=== PATIENT | female | born 1950 | race African-American/Black ===

== ENCOUNTER 2020-05-01 12:25 | Inpatient (IN) ==
[2020-05-01] MEDS ORDERED: SODIUM CHLORIDE 0.9% 1,000 ML IV STA (12:53)
[2020-05-01 13:26] LABS: Basophils # 0.1 10*3/uL (0.0-0.2); Basophils % 0.4 % (0.0-0.8); Eosinophils % 0.1 % (0.00-10.9); Hemoglobin 9.4 GM/DL (12.0-16.0); Immature Granulocytes % 3.5 %; Immature Granulocytes Absolute 0.66 #; Lymphocytes % 5.6 % (21.3-54.2); Mean Corpuscular HGB Conc 31.3 GM/DL (32-36); Mean Platelet Volume 9.7 FL (9.6-12.0); Monocytes % 7.7 % (1.7-12.7); Neutrophils % 82.7 % (38.7-73.9); Platelet Count 483 T/CUMM (130-400); Red Blood Count 3.26 MC/CUMM (3.8-5.5); Red Cell Distribution Width 17.3 % (9.3-17.3); White Blood Count 18.7 T/CUMM (4-12)
[2020-05-01 13:37] LABS: INR 1.1; PT Patient Result 11.4 SECS (9.8-11.9); Partial Thromboplastin Time 28.8 SECS (23.9-33.8)
[2020-05-01] MEDS ORDERED: methylPREDNISolone SOD SUC 125 MG/2 ML VIAL IV STA (13:47)
[2020-05-01 13:59] LABS: Alanine Aminotransferase 10 U/L (13-56); Albumin 2.7 G/DL (3.4-5.0); Alkaline Phosphatase 71 U/L (45-117); Aspartate Amino Transferase 20 U/L (0-37); Blood Urea Nitrogen 21 MG/DL (7-18); Calcium 10.1 MG/DL (8.5-10.1); Estimated Glom Filtration Rate 51 ML/MIN; Glucose 109 MG/DL (74-106); Osmolality,Calculated 271.2 MOS/KG (273-304); Total Protein 7.9 G/DL (6.4-8.3)
[2020-05-01 14:26] LABS: Bilirubin,Urine Negative (Negative); Blood, Urine Negative (Negative); Glucose,Urine (UA) Negative (Negative); Hyaline Casts,Urine 8 /LPF (0-3); Ketones,Urine Negative (Negative); Mucus,Urine Occasional /LPF (Occasional); Nitrite,Urine Negative (Negative); Protein,Urine Negative; Squamous Epithelial Cell,Urine Occasional /HPF (0-10); Urine Appearance Slightly Hazy (Clear); Urine Color Yellow (Yellow); Urine Specific Gravity 1.023 (1.001-1.035); Urine Urobilinogen < 2.0 EU/DL (0.2-1.0); WBC,Urine 1 /HPF (0-6)
[2020-05-01] MEDS ORDERED: DEXTROSE 50% 25 GM/50 ML VIAL IV PRN (15:30)
[2020-05-01] MEDS ORDERED: GLUCAGON 1 MG VIAL IM PRN (15:30)
[2020-05-01] MEDS ORDERED: MAGNESIUM SULF RIDER 4 GM in PREMIX 1 EACH IV PRN (15:39)
[2020-05-01] MEDS ORDERED: MAGNESIUM SULF RIDER 2 GM in PREMIX 1 EACH IV PRN (15:39)
[2020-05-01] MEDS: SODIUM CHLORIDE 0.9% 1,000 ML IV SCH (16:25)
[2020-05-01] MEDS: ONDANSETRON 4 MG/2 ML VIAL IV PRN (16:28)
[2020-05-01] MEDS: HYDROmorphone 2 MG/1 ML VIAL IV PRN ×2 (16:32→20:45)
[2020-05-01] MEDS: PIPERACILLIN/TAZOBACTAM 3,375 MG in SODIUM CHLORIDE 0.9% 100 ML IV SCH (16:33)
[2020-05-01 16:50] LABS: Lymphocytes 10 % (20-55); Segmented Neutrophils 86 % (50-85); Total Cells Counted 100
[2020-05-01] MEDS ORDERED: chlordiazePOXIDE 10 MG CAPSULE PO PRN (17:28)
[2020-05-01] MEDS: ENOXAPARIN 40 MG/0.4 ML SYRINGE SUBCUT SCH (20:46)
[2020-05-01] MEDS: VANCOMYCIN INJ 1,500 MG in SODIUM CHLORIDE 0.9% 500 ML IV SCH (20:57)
[2020-05-02] MEDS: PIPERACILLIN/TAZOBACTAM 3,375 MG in SODIUM CHLORIDE 0.9% 100 ML IV SCH ×4 (00:59→23:54)
[2020-05-02] MEDS: HYDROmorphone 2 MG/1 ML VIAL IV PRN ×6 (00:59→21:09)
[2020-05-02] MEDS: SODIUM CHLORIDE 0.9% 1,000 ML IV SCH ×3 (01:32→17:57)
[2020-05-02 06:11] LABS: Basophils % 0.1 % (0.0-0.8); Hematocrit 26.7 VOL% (35.7-47.0); Hemoglobin 8.2 GM/DL (12.0-16.0); Immature Granulocytes % 2.2 %; Immature Granulocytes Absolute 0.38 #; Lymphocytes # 1.3 10*3/uL (1.4-4.0); Lymphocytes % 7.2 % (21.3-54.2); Mean Corpuscular HGB Conc 30.7 GM/DL (32-36); Mean Corpuscular Volume 92.7 FL (87-102); Mean Platelet Volume 9.7 FL (9.6-12.0); Monocytes % 1.3 % (1.7-12.7); Neutrophils % 89.2 % (38.7-73.9); Platelet Count 472 T/CUMM (130-400); Red Blood Count 2.88 MC/CUMM (3.8-5.5); Red Cell Distribution Width 17.3 % (9.3-17.3); White Blood Count 17.5 T/CUMM (4-12)
[2020-05-02 06:26] LABS: Albumin 2.3 G/DL (3.4-5.0); Bilirubin,Total 0.7 MG/DL (0.2-1.0); Calcium 9.2 MG/DL (8.5-10.1); Osmolality,Calculated 281.5 MOS/KG (273-304)
[2020-05-02] MEDS: PANTOPRAZOLE 40 MG TABLET PO SCH (10:43)
[2020-05-02] MEDS ORDERED: LIDOCAINE 1% 20 ML VIAL MISC INJ ONE (14:20)
[2020-05-02] MEDS: methylPREDNISolone SOD SUC 40 MG/1 ML VIAL IV SCH (14:40)
[2020-05-02] MEDS: VANCOMYCIN INJ 1,500 MG in SODIUM CHLORIDE 0.9% 500 ML IV SCH (15:11)
[2020-05-02 17:27] LABS: Cholesterol Crystals None Seen /LPF
[2020-05-02 17:32] LABS: Lymphocytes,Synovial Fluid 10 %; Neutrophils,Synovial Fluid 86 %
[2020-05-02] MEDS: ENOXAPARIN 40 MG/0.4 ML SYRINGE SUBCUT SCH (21:12)
[2020-05-03] MEDS: HYDROmorphone 2 MG/1 ML VIAL IV PRN ×5 (01:17→21:58)
[2020-05-03 05:49] LABS: Basophils % 0.1 % (0.0-0.8); Hematocrit 25.8 VOL% (35.7-47.0); Immature Granulocytes % 1.9 %; Immature Granulocytes Absolute 0.36 #; Lymphocytes # 0.9 10*3/uL (1.4-4.0); Lymphocytes % 4.7 % (21.3-54.2); Mean Corpuscular Volume 93.1 FL (87-102); Mean Platelet Volume 9.4 FL (9.6-12.0); Neutrophils % 89.3 % (38.7-73.9); Platelet Count 479 T/CUMM (130-400); Red Blood Count 2.77 MC/CUMM (3.8-5.5); Red Cell Distribution Width 17.2 % (9.3-17.3); White Blood Count 18.9 T/CUMM (4-12)
[2020-05-03 06:09] LABS: Calcium 8.5 MG/DL (8.5-10.1); Osmolality,Calculated 288.4 MOS/KG (273-304)
[2020-05-03 06:12] LABS: Hypochromasia 1+; Lymphocytes 1 % (20-55); Microcytosis 1+; Ovalocytes 1+; Segmented Neutrophils 98 % (50-85); Total Cells Counted 100
[2020-05-03 06:13] LABS: Platelet Estimate Increased
[2020-05-03] MEDS: methylPREDNISolone SOD SUC 40 MG/1 ML VIAL IV SCH (08:37)
[2020-05-03] MEDS: PIPERACILLIN/TAZOBACTAM 3,375 MG in SODIUM CHLORIDE 0.9% 100 ML IV SCH ×2 (08:37→16:18)
[2020-05-03] MEDS: PANTOPRAZOLE 40 MG TABLET PO SCH (08:37)
[2020-05-03] MEDS: SODIUM CHLORIDE 0.9% 1,000 ML IV SCH ×2 (15:22→23:59)
[2020-05-03] MEDS: ENOXAPARIN 40 MG/0.4 ML SYRINGE SUBCUT SCH (22:00)
[2020-05-04] MEDS: PIPERACILLIN/TAZOBACTAM 3,375 MG in SODIUM CHLORIDE 0.9% 100 ML IV SCH ×4 (00:02→23:55)
[2020-05-04] MEDS: HYDROmorphone 2 MG/1 ML VIAL IV PRN ×5 (02:03→23:54)
[2020-05-04 06:26] LABS: Basophils % 0.1 % (0.0-0.8); Hematocrit 25.5 VOL% (35.7-47.0); Hemoglobin 7.8 GM/DL (12.0-16.0); Immature Granulocytes % 1.3 %; Lymphocytes # 1.1 10*3/uL (1.4-4.0); Lymphocytes % 7.3 % (21.3-54.2); Mean Corpuscular HGB Conc 30.6 GM/DL (32-36); Mean Corpuscular Volume 94.8 FL (87-102); Mean Platelet Volume 9.8 FL (9.6-12.0); Monocytes % 6.3 % (1.7-12.7); Platelet Count 472 T/CUMM (130-400); Red Blood Count 2.69 MC/CUMM (3.8-5.5); Red Cell Distribution Width 17.6 % (9.3-17.3); White Blood Count 15.6 T/CUMM (4-12)
[2020-05-04 06:48] LABS: Calcium 8.9 MG/DL (8.5-10.1); Osmolality,Calculated 290.1 MOS/KG (273-304)
[2020-05-04] MEDS ORDERED: BISACODYL 5 MG TABLET PO ONE (09:23)
[2020-05-04] MEDS: PANTOPRAZOLE 40 MG TABLET PO SCH (09:51)
[2020-05-04] MEDS: methylPREDNISolone SOD SUC 40 MG/1 ML VIAL IV SCH (09:52)
[2020-05-04] MEDS: SODIUM CHLORIDE 0.9% 1,000 ML IV SCH (09:53)
[2020-05-04] MEDS ORDERED: POLYETHYLENE GLYCOL POWDER 17 GM PACK PO SCH (10:00)
[2020-05-04] MEDS: COLCHICINE 0.6 MG CAPSULE PO SCH (10:19)
[2020-05-04] MEDS: allopurinoL 100 MG TABLET PO SCH (10:19)
[2020-05-04] MEDS: ENOXAPARIN 40 MG/0.4 ML SYRINGE SUBCUT SCH (20:00)
[2020-05-05] MEDS: SODIUM CHLORIDE 0.9% 1,000 ML IV SCH ×3 (00:04→20:15)
[2020-05-05 06:48] LABS: Calcium 8.9 MG/DL (8.5-10.1); Osmolality,Calculated 295.7 MOS/KG (273-304)
[2020-05-05 06:49] LABS: Basophils % 0.1 % (0.0-0.8); Eosinophils % 0.1 % (0.00-10.9); Hematocrit 26.3 VOL% (35.7-47.0); Hemoglobin 8.1 GM/DL (12.0-16.0); Immature Granulocytes Absolute 0.28 #; Lymphocytes # 1.7 10*3/uL (1.4-4.0); Lymphocytes % 11.8 % (21.3-54.2); Mean Corpuscular HGB Conc 30.8 GM/DL (32-36); Mean Corpuscular Volume 94.6 FL (87-102); Mean Platelet Volume 9.7 FL (9.6-12.0); Monocytes % 9.1 % (1.7-12.7); Neutrophils % 76.9 % (38.7-73.9); Platelet Count 428 T/CUMM (130-400); Red Blood Count 2.78 MC/CUMM (3.8-5.5); Red Cell Distribution Width 17.6 % (9.3-17.3)
[2020-05-05] MEDS: PIPERACILLIN/TAZOBACTAM 3,375 MG in SODIUM CHLORIDE 0.9% 100 ML IV SCH (09:14)
[2020-05-05] MEDS: allopurinoL 100 MG TABLET PO SCH (09:15)
[2020-05-05] MEDS: methylPREDNISolone SOD SUC 40 MG/1 ML VIAL IV SCH (09:15)
[2020-05-05] MEDS: HYDROmorphone 2 MG/1 ML VIAL IV PRN ×3 (09:16→20:07)
[2020-05-05] MEDS: PANTOPRAZOLE 40 MG TABLET PO SCH (09:16)
[2020-05-05] MEDS: ENOXAPARIN 40 MG/0.4 ML SYRINGE SUBCUT SCH (20:07)
[2020-05-06] MEDS: HYDROmorphone 2 MG/1 ML VIAL IV PRN ×4 (00:49→20:17)
[2020-05-06 05:57] LABS: Calcium 9.2 MG/DL (8.5-10.1)
[2020-05-06 05:58] LABS: Basophils % 0.1 % (0.0-0.8); Eosinophils % 0.3 % (0.00-10.9); Hematocrit 27.6 VOL% (35.7-47.0); Hemoglobin 8.3 GM/DL (12.0-16.0); Immature Granulocytes % 1.3 %; Immature Granulocytes Absolute 0.17 #; Lymphocytes # 2.3 10*3/uL (1.4-4.0); Lymphocytes % 18.4 % (21.3-54.2); Mean Corpuscular HGB Conc 30.1 GM/DL (32-36); Mean Corpuscular Volume 94.8 FL (87-102); Mean Platelet Volume 10.5 FL (9.6-12.0); Monocytes % 9.5 % (1.7-12.7); NRBC # 0.02 10*3/uL; Neutrophils % 70.4 % (38.7-73.9); Platelet Count 454 T/CUMM (130-400); Red Blood Count 2.91 MC/CUMM (3.8-5.5); Red Cell Distribution Width 17.7 % (9.3-17.3); White Blood Count 12.6 T/CUMM (4-12)
[2020-05-06] MEDS: PANTOPRAZOLE 40 MG TABLET PO SCH (08:32)
[2020-05-06] MEDS: COLCHICINE 0.6 MG CAPSULE PO SCH (08:32)
[2020-05-06] MEDS: allopurinoL 100 MG TABLET PO SCH (08:33)
[2020-05-06] MEDS: methylPREDNISolone SOD SUC 40 MG/1 ML VIAL IV SCH (08:33)
[2020-05-06] MEDS: amLODIPine 5 MG TABLET PO SCH (11:01)
[2020-05-06] MEDS: ENOXAPARIN 40 MG/0.4 ML SYRINGE SUBCUT SCH (20:16)
[2020-05-07] MEDS: HYDROmorphone 2 MG/1 ML VIAL IV PRN ×4 (00:08→17:27)
[2020-05-07 06:22] LABS: Basophils % 0.2 % (0.0-0.8); Eosinophils # 0.1 10*3/uL (0.0-0.87); Eosinophils % 0.6 % (0.00-10.9); Hematocrit 28.9 VOL% (35.7-47.0); Hemoglobin 8.9 GM/DL (12.0-16.0); Immature Granulocytes % 1.5 %; Immature Granulocytes Absolute 0.19 #; Lymphocytes % 15.8 % (21.3-54.2); Mean Corpuscular HGB Conc 30.8 GM/DL (32-36); Mean Corpuscular Volume 93.2 FL (87-102); Mean Platelet Volume 9.7 FL (9.6-12.0); Monocytes % 9.5 % (1.7-12.7); Neutrophils % 72.4 % (38.7-73.9); Platelet Count 431 T/CUMM (130-400); Red Cell Distribution Width 18.5 % (9.3-17.3); White Blood Count 12.6 T/CUMM (4-12)
[2020-05-07 06:45] LABS: Calcium 9.3 MG/DL (8.5-10.1); Osmolality,Calculated 290.7 MOS/KG (273-304)
[2020-05-07] MEDS: predniSONE 20 MG TABLET PO SCH (10:17)
[2020-05-07] MEDS: COLCHICINE 0.6 MG CAPSULE PO SCH (10:17)
[2020-05-07] MEDS: PANTOPRAZOLE 40 MG TABLET PO SCH (10:17)
[2020-05-07] MEDS: allopurinoL 100 MG TABLET PO SCH (10:18)
[2020-05-07] MEDS: amLODIPine 5 MG TABLET PO SCH (10:18)
[2020-05-07] MEDS: ONDANSETRON 4 MG/2 ML VIAL IV PRN ×2 (13:20→17:26)
[2020-05-07] MEDS ORDERED: LOPERAMIDE 2 MG CAPSULE PO PRN (16:44)
[2020-05-07] MEDS ORDERED: allopurinoL 100 MG TABLET PO SCH (16:44)
[2020-05-07] MEDS: POTASSIUM CHLORIDE 20 MEQ TABLET PO SCH (17:28)
[2020-05-07] MEDS: ENOXAPARIN 40 MG/0.4 ML SYRINGE SUBCUT SCH (20:33)
[2020-05-08] MEDS: ONDANSETRON 4 MG/2 ML VIAL IV PRN ×3 (07:27→16:08)
[2020-05-08] MEDS: HYDROmorphone 2 MG/1 ML VIAL IV PRN ×3 (07:28→16:08)
[2020-05-08] MEDS ORDERED: CHOLECALCIFEROL 1,000 UNIT TABLET PO SCH (09:00)
[2020-05-08] MEDS: PANTOPRAZOLE 40 MG TABLET PO SCH (09:58)
[2020-05-08] MEDS: amLODIPine 5 MG TABLET PO SCH (09:58)
[2020-05-08] MEDS: POTASSIUM CHLORIDE 20 MEQ TABLET PO SCH (09:58)
[2020-05-08] MEDS: predniSONE 20 MG TABLET PO SCH (09:58)
[2020-05-08] MEDS ORDERED: POTASSIUM CHLORIDE 20 MEQ TABLET PO SCH (15:23)
[2020-05-08 16:09] VITALS: BP 114/54
== END 2020-05-08 18:36 | disposition swing bed (61) | DRG 546 ==
LOC: EDUNIT# → EDBD → N.ED 12:25 → SUATTDRO 17:23 → N.EDINP 17:23 → N.3E 18:25
PROVIDERS: ADMIT Family Medicine; ATTEND Hospitalist

== ENCOUNTER 2021-07-05 01:26 | Inpatient (IN) ==
[2021-07-05] MEDS ORDERED: NOREPINEPHRINE 4 MG/4 ML VIAL IV ONE ×3 (01:30→02:58)
[2021-07-05] MEDS ORDERED: MAGNESIUM SULF RIDER 2 GM/50 ML PREMIX IV ONE (01:42)
[2021-07-05 02:12] LABS: ABG Base Excess -23.2 MMOL/L (-2.5-2.5); ABG HCO3 8.7 MMOL/L (20-26); ABG Oxygen Saturation 88.4 % (95-100); ABG PCO2 48.8 MM HG (35-48); ABG PO2 81.6 MM HG (80-95); ABG TCO2 10.2 MMOL/L (23-27)
[2021-07-05] MEDS ORDERED: SODIUM BICARBONATE 50 MEQ/50 ML SYRINGE IV ONE ×3 (02:16→04:53)
[2021-07-05] MEDS ORDERED: ENOXAPARIN 100 MG/ML SYRINGE SUBCUT STA (02:22)
[2021-07-05] MEDS ORDERED: SODIUM BICARBONATE 10 MEQ/10 ML SYRINGE IV ONE (03:08)
[2021-07-05] MEDS ORDERED: PHENYLEPHRINE DRIP 40 MG/250 ML PREMIX IV ONE (03:11)
[2021-07-05] MEDS: NOREPINEPHRINE 16 MG in SODIUM CHLORIDE 0.9% 234 ML IV PRN ×2 (03:45→05:15)
[2021-07-05] MEDS: PHENYLEPHRINE DRIP 40 MG/250 ML PREMIX IV PRN ×2 (04:00→04:50)
[2021-07-05] MEDS ORDERED: ALBUTEROL 2.5 MG/3 ML NEB RESP TX PRN (04:06)
[2021-07-05] MEDS ORDERED: MIDAZOLAM 100 MG in SODIUM CHLORIDE 0.9% 80 ML IV PRN (04:12)
[2021-07-05] MEDS ORDERED: ACETAMINOPHEN 325 MG TABLET PO PRN (04:12)
[2021-07-05] MEDS ORDERED: ONDANSETRON 4 MG/2 ML VIAL IV PRN (04:12)
[2021-07-05] MEDS ORDERED: fentaNYL INJ 1,250 MCG in SODIUM CHLORIDE 0.9% 225 ML IV PRN (04:12)
[2021-07-05] MEDS ORDERED: SODIUM CHLORIDE 0.9% 3,000 ML IV STA (04:21)
[2021-07-05] MEDS ORDERED: SODIUM CHLORIDE 0.9% IV ONE (04:21)
[2021-07-05] MEDS ORDERED: SODIUM CHLORIDE 0.9% 1,000 ML IV SCH (04:30)
[2021-07-05] MEDS ORDERED: PHENYLEPHRINE INJ 160 MG in SODIUM CHLORIDE 0.9% 234 ML IV PRN (04:38)
[2021-07-05] MEDS ORDERED: SODIUM BICARBONATE 50 MEQ/50 ML VIAL IV STA (04:49)
[2021-07-05] MEDS ORDERED: EPINEPHrine 1 MG/ML VIAL ONE ×2 (04:57→06:13)
[2021-07-05 05:24] LABS: Basophils % 0.2 % (0.0-0.8); Eosinophils # 0.1 10*3/uL (0.0-0.87); Eosinophils % 0.9 % (0.00-10.9); Immature Granulocytes % 6.5 %; Immature Granulocytes Absolute 0.75 #; Lymphocytes # 3.5 10*3/uL (1.4-4.0); Lymphocytes % 30.3 % (21.3-54.2); Mean Corpuscular HGB Conc 29.5 GM/DL (32-36); Mean Platelet Volume 9.3 FL (9.6-12.0); Monocytes % 9.3 % (1.7-12.7); Neutrophils % 52.8 % (38.7-73.9); Platelet Count 226 T/CUMM (130-400); Red Blood Count 1.87 MC/CUMM (3.8-5.5); Red Cell Distribution Width 23.3 % (9.3-17.3); White Blood Count 11.6 T/CUMM (4-12)
[2021-07-05] MEDS ORDERED: SODIUM BICARB INJ 150 MEQ in STERILE WATER INJ 850 ML IV SCH (05:30)
[2021-07-05 05:48] LABS: Hemoglobin 5.9 GM/DL (12.0-16.0)
[2021-07-05 05:54] LABS: Alanine Aminotransferase 113 U/L (13-56); Albumin 1.5 G/DL (3.4-5.0); Alkaline Phosphatase 152 U/L (45-117); Aspartate Amino Transferase 543 U/L (0-37); Blood Urea Nitrogen 37 MG/DL (7-18); CKMB % 2.6 %; Calcium 8.3 MG/DL (8.5-10.1); Carbon Dioxide 12 MMOL/L (21-32); Estimated Glom Filtration Rate 23 ML/MIN; Glucose 233 MG/DL (74-106); Potassium 4.8 MMOL/L (3.5-5.1); Sodium 150 MMOL/L (136-145)
[2021-07-05 05:56] LABS: Band Neutrophils 6 % (0-10); Elliptocytes 1+; Hypochromia 1+; Lymphocytes 42 % (20-55); Microcytosis Slight; Nucleated Red Blood Cells 7 (0-5); Platelet Estimate Adequate; Segmented Neutrophils 48 % (50-85); Total Cells Counted 100
[2021-07-05] MEDS ORDERED: SODIUM CHLORIDE 0.9% 1,000 ML IV PRN (06:01)
[2021-07-05 06:33] LABS: ABG Base Excess -20.1 MMOL/L (-2.5-2.5); ABG HCO3 8.9 MMOL/L (20-26); ABG Oxygen Saturation 98.7 % (95-100); ABG PCO2 37.8 MM HG (35-48); ABG PO2 265.4 MM HG (80-95); ABG TCO2 10.1 MMOL/L (23-27)
[2021-07-05 08:16] VITALS: BP 57/33
[2021-07-05] MEDS ORDERED: PANTOPRAZOLE 40 MG VIAL IV SCH (09:00)
[2021-07-06] MEDS ORDERED: ENOXAPARIN 150 MG/ML SYRINGE SUBCUT SCH (09:00)
== END 2021-07-05 06:59 | disposition expired | DRG 296 ==
LOC: N.ED 01:26 → N.EDINP 03:54 → SUATTDRO 03:54 → N.EDINP 06:58
PROVIDERS: ADMIT Internal Medicine; ATTEND Internal Medicine